=== PATIENT | male | born 1980 | race Caucasian/White ===

== ENCOUNTER → 2017-02-26 | Outpatient (REF) | LOC: WSOH 14:34 | DX: Z02.4 Encounter for examination for driving license (principal) ==

== ENCOUNTER → 2017-10-05 | Outpatient (CLI) | payer OTHER ==
[2017-10-05 13:57] LABS: BASO # 0.1 (0.0-0.2); BASO % 1.6 % (0.0-2.0); EOS # 0.3 (0.0-0.7); EOS % 3.7 % (0-4.0); GRAN # 3.6 (1.4-6.5); GRAN % 53.4 % (42.2-75.2); HEMATOCRIT 41.6 % (42.0-52.0); HEMOGLOBIN 14.2 g/dl (13.5-18.0); LYMPH # 2.3 (1.2-3.4); LYMPH % 33.1 % (20.0-51.0); MEAN CELL VOLUME 89 fl (80.0-100.0); MEAN CORPUSCULAR HEMOGLOBIN 30 pg (27.0-31.0); MEAN CORPUSCULAR HGB CONC 34 g/dl (33.0-37.0); MEAN PLATELET VOLUME 11.8 fl (7.4-10.4); MONO # 0.6 (0.1-0.6); MONO % 8.1 % (1.7-9.3); PLATELET COUNT 258 K/mm3 (130-400); RED BLOOD COUNT 4.69 M/mm3 (4.20-5.60)
[2017-10-05 14:07] LABS: ALBUMIN 5.3 gm/dL (3.5-5.0); BILIRUBIN,TOTAL 0.6 mg/dL (0.0-1.0); CALCIUM 9.8 mg/dL (8.4-10.2); CHOLESTEROL RISK RATIO 4.1; CREATININE, serum 0.81 mg/dL (0.66-1.25); POTASSIUM 4.1 mmol/L (3.4-5.0); TOTAL PROTEIN 8.9 gm/dL (6.4-8.2)
[2017-10-05 14:38] LABS: THYROID STIMULATING HORMONE 6.84 uIU/mL (0.465-4.680)
[2017-10-06 00:37] LABS: URINE MICROALBUMIN 1.8 mg/dL (0.0-1.7)
== END ==
LOC: COL.LAB 13:29
DX: E78.5 Hyperlipidemia, unspecified (principal); I10 Essential (primary) hypertension; E03.4 Atrophy of thyroid (acquired)